=== PATIENT | female | born 1990 | race Caucasian/White ===

== ENCOUNTER 2018-11-10 14:42 | Emergency (ER) | payer OTHER ==
[~2018-11-10] VITALS: Wt 125.0 kg
[~2018-11-10 14:42] MED LIST: BEN25 PO; NAPR-985 PO; PRED20TA PO; TRAM50TA2 PO
[2018-11-10] MEDS ORDERED: ACETAMINOPHEN 325 MG TAB PO ONE (17:30)
[2018-11-10] MEDS ORDERED: TRAM50TA2 PO (18:18)
[2018-11-10] MEDS ORDERED: IBUP-1542 PO (18:18)
--- NOTE | 2018-11-10 18:21 | ERD ---
ER Documentation Chief Complaint Chief Complaint bib self, cc; left knee pain for couple months, taking ibuprofen no help HPI 28-year-old female presents with left knee pain for last several months. She had an x-ray 6 months ago. She denies any history of trauma or inciting events. She tried a knee sleeve but it does not fit very well. She denies any calf swelling, shortness of breath, fevers, restricted range of motion or weakness. ROS All systems reviewed and are negative except as per history of present illness. Medications Home Meds Active Scripts Ibuprofen* (Motrin*) 600 Mg Tab, 600 MG PO Q6, #30 TAB Prov:MARIAM SANDERSON MD 11/10/18 Tramadol HCl (Tramadol HCl) 50 Mg Tablet, 50 MG PO Q4 PRN for PAIN, #20 TAB Prov:MARIAM SANDERSON MD 11/10/18 Naproxen* (Naprosyn*) 500 Mg Tablet, 500 MG PO BID PRN for PAIN AND/OR INFLAMMATION, #30 TAB Prov:ALY PEARCE PA-C 06/01/16 Tramadol HCl (Tramadol HCl) 50 Mg Tablet, 50 MG PO Q4 PRN for PAIN, #20 TAB Prov:ALY PEARCE PA-C 06/01/16 Prednisone* (Prednisone*) 20 Mg Tab, 40 MG PO DAILY for 5 Days, TAB Prov:POWER STATON PA-C 11/09/15 Diphenhydramine Hcl* (Benadryl*) 25 Mg Cap, 25 MG PO Q6, #14 CAP Prov:POWER STATON PA-C 11/09/15 Allergies Allergies: Coded Allergies: No Known Allergy (Unverified , 06/01/16) PMhx/Soc Medical and Surgical Hx: pt denies Medical Hx, pt denies Surgical Hx Hx Alcohol Use: Yes Hx Substance Use: No Hx Tobacco Use: No Smoking Status: Current some day smoker FmHx Family History: No diabetes, No coronary disease, No other Physical Exam Vitals Vital Signs Date Temp Pulse Resp B/P (MAP) Pulse Ox O2 O2 Flow FiO2 Time Delivery Rate 11/10/18 98.2 90 19 135/80 100 14:45 (98) Physical Exam Const: No acute distress. Obese. Head: Atraumatic Eyes: Normal Conjunctiva ENT: Normal External Ears, Nose and Mouth. Neck: Full range of motion. No meningismus. Resp: Clear to auscultation bilaterally Cardio: Regular rate and rhythm, no murmurs Abd: Soft, non tender, non distended. Normal bowel sounds Skin: No petechiae or rashes Back: No midline or flank tenderness Ext: No cyanosis, or edema. Tenderness in the anterior joint line without instability, effusion, warmth, deformities. No calf swelling or Homans sign. Neur: Awake and alert Psych: Normal Mood and Affect Results 24 hrs Current Medications Medications Dose Sig/Michelle Start Time Status Last (Trade) Ordered Route PRN Stop Time Admin Dose Reason Admin 650 mg ONCE ONCE 11/10/18 DC 11/10/18 Acetaminophen PO 17:30 17:30 (Tylenol 11/10/18 17:31 Tab) Procedures/MDM X-ray left knee 3V Interpreted by me: Bones: No fracture Joints: No dislocation Foreign body: None patient-no acute findings of fracture dislocation. Small suprapatellar effusion. She presents with left knee pain of uncertain etiology over the last 6 months. There is no signs of septic arthritis, fracture, dislocation, ischemia, deficits or DVT. Will treat with continuation of ibuprofen, recommendations for ice, orthopedic and primary care follow-up. We will add tramadol for acute pain despite ibuprofen. The patient was stable with no new complaints during the ER course. Clinically, there is no current evidence to suggest meningitis, sepsis, acute abdomen, pneumonia, stroke, acute coronary syndrome, pulmonary embolism, aortic dissection or any other emergent condition appearing to require further evaluation or hospitalization. Patient counseled regarding my diagnostic impression and care plan. Prior to discharge all questions answered. Pt agrees with treatment plan and understands strict return precautions. Pt is instructed to follow up with primary care provider within 24-48 hours. Precautionary instructions provided including instructions to return to the ER if not improving or for any worsening or changing symptoms or concerns. Departure Diagnosis: Primary Impression: Knee pain Chronicity: acute Laterality: left Qualified Codes: M25.562 - Pain in left knee Condition: Stable Patient Instructions: Knee Pain, Uncertain Cause Referrals: LIEN BEAVER MD Additional Instructions: No acute abnormalities on the x-ray. Likely ligaments or tendons. Recommend orthopedist for further evaluation treatment. Recommend knee sleeve, ice, primary care follow-up and return precautions. May need authorization from primary doctor for orthopedist visit. MARIAM SANDERSON MD Nov 10, 2018 18:21
[2018-11-10 18:35] VITALS: BP 151/78; PULSE 63; RESP 18
== END 2018-11-10 18:40 | disposition home or self-care (01) ==
LOC: FTE 14:42
DX: M25.562 Pain in left knee (principal); F17.210 Nicotine dependence, cigarettes, uncomplicated
CPT/HCPCS: 73562; Z7502; Z7610